=== PATIENT | female | born 1965 | race Caucasian/White ===

== ENCOUNTER 2022-07-26 11:05 | Observation (INO) | payer SELFPAY ==
[~2022-07-26] VITALS: Ht 167.6 cm; Wt 87.3 kg
[2022-07-26] MEDS ORDERED: WELLBUTRIN SR100 MG PO (11:25)
[2022-07-26] MEDS ORDERED: MIRAPEX0.125 MG PO (11:25)
[2022-07-26] MEDS ORDERED: PROGESTERONE100 MG PO (11:26)
--- NOTE | 2022-07-26 18:40 | NUR ---
REPORT RECEIVED BEDSIDE ED. PT. TRANSPORTED VIA STRETCHER TO ROOM AND AMBULATED TO BED WITH SBA. SHE REPORTS TOLERABLE ABDOMINAL PAIN AND REFUSES PAIN MEDS. DENIES NAUSEA. IVF STARTED. DISCUSSED SAFETY AND POC. CALL LIGHT IN REACH.
[2022-07-26 18:46] VITALS: BP 103/84
--- NOTE | 2022-07-26 19:46 | NUR ---
REPORT RECEIVED FROM OFFGOING SHIFT. PT IS RESTING IN BED. SHE CALLED TO ASK FOR ANTI NAUSEA MED . EMELY GALINDO MEDICATED PT WITH ZOFRAN 8 MG IV. PT IS NOW SLEEPING. IV PATENT. CALL LIGHT IN REACH.
[2022-07-26 21:30] VITALS: BP 121/73
--- NOTE | 2022-07-26 22:34 | NUR ---
PT DENIES ANY PAIN. STATES HER NAUSEA HAS BEEN RELIEVED. NO NEEDS AT THIS TIME. CALL LIGHT IN REACH.
--- NOTE | 2022-07-27 00:04 | NUR ---
PT'S FLUIDS ARE REMOVED FROM BEDSIDE TABLE. SHE IS NPO FOR SURGERY TOMORROW. PT IS CURRENTLY SLEEPING WITH SOFT SNORING RESPERATIONS OBSERVED.
[2022-07-27 01:50] VITALS: BP 124/78
--- NOTE | 2022-07-27 02:01 | NUR ---
PT HAS VOIDED 600 MLS BILI COLORED URINE. SHE HAS BEEN NPO [place]CE [place]. HAS A CHAPSTICK ON BEDSIDE TABLE. SHE DENIES ANY PAIN OR NAUSEA. VS FOLLOWS T=97.9 ORAL, P=71, BP= 124/778 MAP=88. RESTING WELL. CALL LIGHT IN REACH.
--- NOTE | 2022-07-27 03:20 | NUR ---
PT APPEARS TO BE SLEEPING WITH EYES CLOSED, SOFTLY SNORING RESPERATIONS. CALL LIGHT IN REACH. LEFT PT UNDISTURBED.
[2022-07-27 05:15] VITALS: BP 116/78
--- NOTE | 2022-07-27 05:26 | NUR ---
PT UP TO THE BATHROOM TO VOID. VOIDED 600 MLS DARK URINE. BACK TO BED.VS FOLLOWS, VQ=363/78 MAP=86, PULSE = 77, O2 SAT = 97% ON ROOM AIR, T =97.5 ORAL, RESP= 16. PT HAD NAUSEA AND WAS GIVEN ZOFRAN 4 MG IVP. AN ICE PACK WAS PLACED AT THE BACK OF HER NECK FOR HER HEADACHE WITH GOOD RESULTS.
--- NOTE | 2022-07-27 05:31 | NUR ---
PT HAS BEEN UP TO VOID WITH TOTAL URINE OUTPUT OF 1200 DARK URINE . SHE HAS BEEN NPO [place]CE [place] WITH A TOTAL INTAKE OF 200 MLS WATER PRIOR TO THAT. SHE HAS LR RUNNING AT 100 MLS /HR WITH A TOTAL IVF INTAKE OF 934 MLS[address] ARE IN PLACE. PT IS RESTING , CALL LIGHT IN REACH.
[2022-07-27 07:33] VITALS: BP 121/76
--- NOTE | 2022-07-27 08:06 | NUR ---
PT. C/O NAUSEA. ADMIN COMPAZINE. ICEPACK REPLACED. AT BEDSIDE. WILL CONTINUE TO MONITOR.
[2022-07-27] MEDS ORDERED: BUPROPION HCL150 M2 PO (09:18)
[2022-07-27] MEDS ORDERED: PRAMIPEXOLE0.125 MG PO (09:18)
[2022-07-27] MEDS ORDERED: DESVENLAFAXINE25 MG PO (09:18)
--- NOTE | 2022-07-27 10:05 | NUR ---
ROUNDING ON PT. SHE REPORTS NAUSEA HAS RESOLVED. C/O HEADACHE BUT REFUSES PRN MEDS AT THIS TIME. ICE PACK IN PLACE. CALL LIGHT IN REACH.
--- NOTE | 2022-07-27 10:45 | NUR ---
OVER TO SEE PATIENT FOR ASSESSMENT. PATIENT SLEEPING WITH LIGHTS OUT AND DOES NOT AWAKE TO VOICE. WILL RETURN AFTER PATIENTS RETURN FROM OR TO COMPLETE ASSESSMENT.
--- NOTE | 2022-07-27 11:49 | NUR ---
INSPECTOR SHELLS HERE FOR PT. POWER MACHINE OPERATOR ABX PULLED AND GIVEN TO RN. ASSISTED WITH TRANSPORTING PT. TO OR
--- NOTE | 2022-07-27 14:14 | NUR ---
07/27/22 1414 Christen Rhodes SN 1405 PATIENT ARRIVES TO PACU UNRESPONSIVE TO PAINFUL STIMULI. RESP EVEN AND UNLABORED. ORAL AIRWAY IN PLACE. O2 MASK AT 6 LITERS.
--- NOTE | 2022-07-27 14:32 | HP ---
[facility] [address], [place] [address] Signed ADMISSION DATE: 07/26/2022 REASON FOR ADMISSION: Acute calculous cholecystitis with elevated liver enzymes. HISTORY OF PRESENT ILLNESS: This is a 57-year-old white woman who is accompanied by her . They are from [place], [place]. They were passing through the area. 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 She has had several episodes of epigastric pain, which have been severe over the past several months. Her most recent episode very significant yesterday. Her joined her here in [place] and she was unable to further drive due to her symptoms. She presented to the emergency room where she was evaluated by Dr. Sanders. Her evaluation shows an aggregate a high probability of acute calculous cholecystitis with elevated liver enzymes. She is admitted for further evaluation and care. Her pain is primarily in the epigastric area and has very tender to touch. Previously, it has been penetrating directly through to the back. An ultrasound and chest x-ray were performed in the emergency room. The chest x-ray being normal. The ultrasound performed showed a single gallstone wedged in the infundibulum of the gallbladder. Liver parenchyma was normal. Mild gallbladder wall thickening was noted. Gallstone was 1.8 cm in size. A special note for laboratory studies showed elevated liver enzymes with an AST 834, ALT 1137, alkaline phosphatase 164, and a bilirubin of 1.4. Creatinine was elevated at 1.26, and other lab studies essentially were normal including a CBC, which showed a white count of 4.1, hematocrit 45.8, and platelets of 271,000. COVID serology is negative. PAST MEDICAL HISTORY: Notable for hysterectomy as well as spinal disk interventions including facet joint surgery. She is and lives in [place] as previously noted. She has had normal childbirth in the past. REVIEW OF SYSTEMS: She denies any precordial chest pain or shortness of breath. She has had no hematemesis, hematuria, or other issue. PHYSICAL EXAMINATION: GENERAL: A pleasant white woman who looks to be in no distress at the moment. VITAL SIGNS: Temperature 97.0, pulse is 68, respirations 22, blood pressure 127/79. Electronically Signed By: AMOL LEMA MD 07/27/22 1432 PATIENT NAME: JAYLENE GAMBLE HISTORY AND PHYSICAL DATE OF : 61 REPORT #: [id number] PHYSICIAN: AMOL LEMA MD PCP: OTHER PCP REPORT IS CONFIDENTIAL AND NOT TO BE RELEASED WITHOUT AUTHORIZATION [facility] [address], [place] [address] Signed NECK: Shows no thyromegaly or cervical adenopathy. Trachea is midline. CHEST: Clear. HEART: Regular without murmur. ABDOMEN: Somewhat obese, but soft. She has tenderness in epigastric area. There is no evidence of ascites. EXTREMITIES: Show no clubbing, cyanosis, or edema. LABORATORY DATA: I reviewed her labs, her ultrasound, images and report and so on. ASSESSMENT AND PLAN: The patient appears to have significant findings of recurrent biliary colic and now probably acute calculous cholecystitis with markedly elevated liver enzymes. This may represent local inflammatory effect on the liver alone rather than common duct obstruction as her bilirubin is not excessively high nor the alkaline phosphatase. I have recommended she be admitted to the hospital given IV antibiotics, parenteral pain medication, anticipating cholecystectomy tomorrow. We would anticipate a laparoscopic cholecystectomy and possible laparoscopic common duct exploration as appropriate. She may require an open procedure including common duct exploration depending on findings. The risks of bleeding, infection, bile duct injury need for open procedure and of course failure to cure her symptoms was reviewed in detail. She understands and wished to proceed. For now, she will be able to have clear liquids for comfort. Will be maintained n.p.o. otherwise. IV antibiotic Ancef will be given prophylaxis against ulceration and of course, DVT prophylaxis. MD DAO Drake/MODL /[id number] cc: JOSE Heredia Electronically Signed By: AMOL LEMA MD 07/27/22 1432 PATIENT NAME: JAYLENE GAMBLE HISTORY AND PHYSICAL DATE OF : 61 REPORT #: [id number] PHYSICIAN: AMOL LEMA MD PCP: OTHER PCP REPORT IS CONFIDENTIAL AND NOT TO BE RELEASED WITHOUT AUTHORIZATION [facility] [address] [facility] [place], [place] [address] Signed Michele Sanders MD Copies: ~ Electronically Signed By: AMOL LEMA MD 07/27/22 1432 PATIENT NAME: JAYLENE GAMBLE HISTORY AND PHYSICAL DATE OF : 61 REPORT #: [id number] PHYSICIAN: AMOL LEMA MD PCP: OTHER PCP REPORT IS CONFIDENTIAL AND NOT TO BE RELEASED WITHOUT AUTHORIZATION
[2022-07-27] MEDS ORDERED: OXYCODON-ACETA1 EAC2 PO (14:41)
[2022-07-27] MEDS ORDERED: ACETAMINOPHEN500 MG PO (14:41)
[2022-07-27] MEDS ORDERED: IBUPROFEN600 MG PO (14:41)
[2022-07-27 15:15] VITALS: BP 143/83
--- NOTE | 2022-07-27 15:24 | NUR ---
PT. ARRIVED TO FLOOR VIA BED AND REPORT RECEIVED. ON ROOM AIR AND ORIENTED TO ALL. LAP. SITES X4 ARE DRY AND INTACT WITH DRIED DRAINAGE. ABDOMEN IS MILDLY DISTENDED AND BOWEL TONES HYPOACTIVE THROUGHOUT. SHE DENIES PAIN AND NAUSEA. TOLERATING CLEAR LIQUIDS. CPOX IN PLACE AND AT BEDSIDE.
[2022-07-27 16:07] VITALS: BP 145/82
--- NOTE | 2022-07-27 16:08 | NUR ---
PT. IS TOLERATING JELLO AND DENIES PAIN AT THIS TIME. LAP. SITE STERISTRIPS REMAIN UNCHANGED. VITALS STABLE. PT. IS DROWSY BUT AWAKENS EASILY TO VOICE. MEDS ADMINISTERED. PT. LEFT RESTING WITH CALL LIGHT IN REACH AND AT BEDSIDE.
[2022-07-27 17:12] VITALS: BP 107/52
--- NOTE | 2022-07-27 17:16 | NUR ---
FOCUSED ASSESSMENT COMPLETED. LAP. SITE STERI-STRIPS HAVE A SMALL AMOUNT OF DRAINAGE BUT ARE INTACT X4. PT. DENIES PAIN OR NAUSEA AND TOLERATING REGULAR DIET. SHE HAS VOIDED AND AMBULATED. DISCUSSED AMBULATING AFTER DINNER. PT. AGREEABLE CALL LIGHT IN REACH.
--- NOTE | 2022-07-27 18:15 | NUR ---
PT. MEETS ALL CRITERIA FOR DISCHARGE. MD CALLED AND UPDATED. DC INSTRUCTIONS REVIEWED, VITALS TAKEN, AND IV REMOVED BY CHARGE.
--- NOTE | 2022-07-28 07:27 | EKG ---
[facility] [address] [facility] [place], [place] [address] Signed Normal sinus rhythm Normal ECG No previous ECGs available Confirmed by AILIN CRESPO MD ([id number]) on 07/28/2022 7:27:34 AM Electronically Signed By: AILIN CRESPO MD 07/28/22 0727 PATIENT NAME: JAYLENE GAMBLE Electrocardiogram DATE OF : 61 PHYSICIAN: AILIN CRESPO MD REPORT #: [id number] REPORT IS CONFIDENTIAL AND NOT TO BE RELEASED WITHOUT AUTHORIZATION
--- NOTE | 2022-07-29 13:02 | OR ---
[facility] [facility] [address] [place], [place] [address] Signed DATE OF OPERATION: 07/27/2022 SURGEON: Amol Lema MD PREOPERATIVE DIAGNOSES: 1. Acute calculous cholecystitis. 2. Obesity. POSTOPERATIVE DIAGNOSES: 1. Acute calculous cholecystitis. 2. Obesity. PROCEDURES: 1. Laparoscopic cholecystectomy with intraoperative cholangiogram. 2. Surgeon-directed fluoroscopy. ANESTHESIA: General endotracheal, TOWBOAT OPERATOR and local 10 mL of 0.25% Marcaine with epinephrine. 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 She began having epigastric and right subcostal pain and presented to the emergency room. She was evaluated by Dr. Sanders and found to have acute calculous cholecystitis. Her liver enzymes were quite markedly elevated, though the bilirubin was only slightly elevated at 1.9. A gallbladder ultrasound confirmed what appeared to be a large stone obstructing the gallbladder in the infundibulum. She had no intrahepatic ductal dilatation. She has been fluid resuscitated, given intravenous antibiotic Ancef and is now ready to undergo cholecystectomy with possible common bile duct exploration. The risk of bleeding, infection, bile duct injury, need for open procedure, need for common duct exploration and so forth were all reviewed in detail. She understands and wished to proceed. FINDINGS: The gallbladder was edematous and inflamed to be sure. The liver was perfectly normal in every way. Cholangiogram showed no sign of filling defect, bile duct dilatation, or other problem. The gallbladder once excised showed a jelly-like matrix with multiple small stones within it. There was no sign of malignancy. Electronically Signed By: AMOL LEMA MD 07/29/22 1302 PATIENT NAME: JAYLENE GAMBLE OPERATIVE REPORT DATE OF : 61 REPORT #: [id number] PHYSICIAN: AMOL LEMA MD PCP: OTHER PCP REPORT IS CONFIDENTIAL AND NOT TO BE RELEASED WITHOUT AUTHORIZATION [facility] [address] [place], [place] [address] Signed DESCRIPTION OF PROCEDURE: The patient was brought to the operating room, given a general endotracheal anesthetic. Preoperative antibiotic Ancef was given. Sequential compression device stockings were used. The abdomen was prepared with a chlorhexidine solution and draped sterilely. Infraumbilical incision was made using an open Artur cannula technique. Pneumoperitoneum was achieved to a level of 14 mmHg of carbon dioxide gas. Intra-abdominal inspection showed no sign of ascites or carcinomatosis. The gallbladder was largely obscured from view, but did not appear to be "socked in." The liver was entirely normal. Three additional trocars were placed in their usual configuration in the subxiphoid, right midclavicular, and right anterior axillary line. The gallbladder was elevated cephalad and retracted laterally. Marked edema and inflammation of the gallbladder was noted and a fair amount of fatty tissue over the infundibulum. With meticulous care, the dissection was undertaken identifying ultimately the cystic duct and cystic artery and its several branches. Cystic artery was doubly clipped and divided. A clip was applied across the gallbladder cystic duct junction and a transverse choledochotomy made in the cystic duct. Egress of dark green clear bile was noted. Retrograde milking of the cystic duct was undertaken showing no sign of stone or debris. Using the Rivera type cholangiocatheter, intraoperative cholangiography was undertaken showing free flow of contrast in the biliary tree with prompt emptying into the duodenum. The cystic duct was rather lengthy. There was no sign of biliary anomaly. Additional views were undertaken to allow for retrograde filling of the more proximal biliary tree and again showing no distinct sign of duct or abnormality otherwise. The catheter was removed and the cystic duct was triply clipped and divided and the gallbladder was dissected free in a retrograde fashion. There appeared to be a subvesical tubular structure consistent with a subvesical vein, artery or less likely duct of Luschka. It was clipped. Further dissection was undertaken freeing the gallbladder completely from the liver. Spillage of dark green bile and presumably some stone material was noted just over the omentum which was easily and almost totally scooped up within the endobag. The gallbladder was extracted through the infraumbilical port, opened on the back table and found to have a gelatinous jelly-like matrix with multiple very small size stones. There was no sign of neoplasm of the mucosa. Irrigation was undertaken copiously 2 L worth to be sure that all granular bits of stone debris were removed during the course of this dissection. Once the fluid was completely clear and there was no sign of stone or other residual debris, the trocars were removed under direct visualization showing no sign of bleeding. The infraumbilical fascial incision was reapproximated with interrupted 0 Vicryl suture. A 10 mL of 0.25% Marcaine with epinephrine was injected locally. The skin was closed with interrupted 3-0 Vicryl. Steri-Strips were applied. She was ultimately extubated and transferred to the recovery room in good condition having suffered no complication. Sponge, needle, and instrument counts were reported as correct x3. Electronically Signed By: AMOL LEMA MD 07/29/22 1302 PATIENT NAME: MAVISJAYLENE JOSE OPERATIVE REPORT DATE OF : 61 REPORT #: [id number] PHYSICIAN: AMOL LEMA MD PCP: OTHER PCP REPORT IS CONFIDENTIAL AND NOT TO BE RELEASED WITHOUT AUTHORIZATION [address] [place] [address] Signed MD DAO Drake/DEBORAH /[id number] cc: JOSE Heredia ... Dr. Amol Sanders Copies: ~ Electronically Signed By: AMOL LEMA MD 07/29/22 1302 PATIENT NAME: JAYLENE GAMBLE OPERATIVE REPORT DATE OF : 61 REPORT #: [id number] PHYSICIAN: AMOL LEMA MD PCP: OTHER PCP REPORT IS CONFIDENTIAL AND NOT TO BE RELEASED WITHOUT AUTHORIZATION
== END 2022-07-27 18:50 | disposition home or self-care (01) ==
LOC: ED 11:05 → MS 11:08
PROVIDERS: ADMIT Surgery; ATTEND Surgery
PROC: BF121ZZ Fluoroscopy of Gallbladder using Low Osmolar Contrast (ICD-10-PCS; 2022-07-27)
PROC: 0FT44ZZ Resection of Gallbladder, Percutaneous Endoscopic Approach (ICD-10-PCS; principal; 2022-07-27 11:45)
DX: K80.00 Calculus of gallbladder with acute cholecystitis without obstruction (principal); E66.9 Obesity, unspecified; Z20.822 Contact with and (suspected) exposure to COVID-19; Z68.31 Body mass index [BMI] 31.0-31.9, adult
CPT/HCPCS: 00790; 36415; 71045; 74300; 76705; 80053; 83690; 83735; 84484; 85025; 87502; 93005; 93010; 96361; 96372; 96375; 96376; A9270; G0378; J0131; J0690; J0780; J1100; J1644; J1885; J2001; J2060; J2250; J2405; J2704; J3475; J7030; J7121; Q9967; U0003